=== PATIENT | male | born 1975 | race Caucasian/White ===

== ENCOUNTER 2017-06-06 06:54 | Emergency (ER) | payer OTHER ==
[~2017-06-06 06:54] MED LIST: INDO50CA PO; PERC5TAB12 PO
[2017-06-06 06:55] VITALS: BP 186/95; PULSE 71; RESP 16; TEMP 97.5; O2SAT 97
--- NOTE | 2017-06-06 07:23 | PD ---
HPI Chief Complaint: Musculoskeletal Complaint Time Seen by Provider: 07:14 Travel History International Travel<30 days: No Contact w/Intl Traveler<30days: No Traveled to known affect area: No History of Present Illness HPI 41 year old male who is right hand dominant, presents to ER with c/o of right thumb pain. Patient reports that he went to reach from something a few days ago and since then has had pain with pins and needles to his right thumb. Denies any other c/o. 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 Reports that he does have severe pain by the end of the night. Patient here for evaluation of this pain. PFSH Past Medical History Medical History: Denies Significant Hx Diminished Hearing: No Influenza Vaccination: No Past Surgical History Surgical History: No Previous Surgery Tonsillectomy: Yes Social History Alcohol Use: Yes (socially) Tobacco Use: No Substance Use: No Allergies-Medications (Allergen,Severity, Reaction): Coded Allergies: codeine (Unverified Allergy, Intermediate, HIVES, 06/06/17) Reported Meds & Prescriptions Reported Meds & Active Scripts Active No Active Prescriptions or Reported Medications Review of Systems General / Constitutional: No: Fever Eyes: No: Visual changes HENT: No: Headaches Cardiovascular: No: Chest Pain or Discomfort Respiratory: No: Shortness of Breath Gastrointestinal: No: Abdominal Pain Genitourinary: No: Dysuria Musculoskeletal: Positive: Pain (right thumb pain) Skin: No Rash Neurologic: Positive: Paresthesia (right thumb), No: Weakness Psychiatric: No: Depression Endocrine: No: Polydipsia Hematologic/Lymphatic: No: Easy Bruising Physical Exam Narrative GENERAL: Well-nourished, well-developed patient. SKIN: Focused skin assessment warm/dry. HEAD: Normocephalic. EYES: No scleral icterus. No injection or drainage. NECK: Supple, trachea midline. No JVD or lymphadenopathy. CARDIOVASCULAR: Regular rate and rhythm without murmurs, gallops, or rubs. RESPIRATORY: Breath sounds equal bilaterally. No accessory muscle use. GASTROINTESTINAL: Abdomen soft, non-tender, nondistended. Left hand: normal exam Right hand: pulses normal, neurovascularly with no compromise, no open fracture , patient with appropriate range of motion with all fingers, patient with paresthesias to her right thumb MUSCULOSKELETAL: No cyanosis, or edema. BACK: Nontender without obvious deformity. No CVA tenderness. Data Data Last Documented VS Vital Signs Date Time Temp Pulse Resp B/P (MAP) Pulse Ox O2 Delivery O2 Flow Rate FiO2 06/06/17 06:55 97.5 71 16 186/95 (125) 97 Room Air Orders Orders Wrist, Complete ([id number]) (06/06/17 ) Ibuprofen (Motrin) (06/06/17 07:30) MDM Medical Decision Making Medical Screen Exam Complete: Yes Emergency Medical Condition: Yes Interpretation(s) Vital Signs Date Time Temp Pulse Resp B/P (MAP) Pulse Ox O2 Delivery O2 Flow Rate FiO2 06/06/17 06:55 97.5 71 16 186/95 (125) 97 Room Air Differential Diagnosis Differential includes paresthesias, fx Narrative Course 41-year-old male who presents to emergency room with complaints of right thumb paresthesias for the past few days, that he injured his thumb while reaching for an object a few days ago, he is able to use his thumb without any difficulties, reports increased pain at nighttime while at rest. Patient can have a nerve radiculopathy as paresthesia does extend to the half of his index finger to the right hand, it does not extend to the third or fourth digit. Xray of hand ordered. Last Impressions Wrist X-Ray 06/06/17 0000 Signed Impressions: Service Date/Time: Tuesday, June 06, 2017 07:19 - CONCLUSION: No right wrist abnormality is identified. Edward Angel MD Patient with no wrist abnormality. Will have patient follow up with orthopedic surgery as needed. Diagnosis Primary Impression: Thumb paresthesia, right Patient Instructions: General Instructions Additional Instructions: Return to ER as needed Please follow up with your primary care doctor Follow up with orthopedic surgery as needed Do not drive while taking narcotic pain medications Rest/ice your thumb Med/Other Pt SpecificInfo: Prescription(s) given Scripts Oxycodone-Acetaminophen (Percocet) 5-325 mg Tab 1 TAB PO Q6H Y for PAIN, #10 TAB 0 Refills Prov: Kiley Andre DO 06/06/17 Ibuprofen (Ibuprofen) 600 Mg Tab 600 MG PO Q6H Y for Pain/Inflammation, #40 TAB 0 Refills Prov: Kiley Andre DO 06/06/17 Disposition: 01 DISCHARGE HOME Condition: Stable Kiley Andre DO Jun 06, 2017 07:23
[2017-06-06] MEDS ORDERED: IBUPROFEN 600 MG TAB PO ONE (07:30)
--- NOTE | 2017-06-06 07:37 | RADRPT ---
EXAM DATE/TIME: 06/06/2017 07:19 [facility] COMPARISON: No previous studies available for comparison. INDICATIONS : Sudden onset of right wrist pain when reaching for something, has increasing pain for 4 days MEDICAL HISTORY : None. SURGICAL HISTORY : None. ENCOUNTER: Initial ACUITY: 4 - 6 days PAIN SCORE: 9/10 LOCATION: Right wrist FINDINGS: Three views of the right wrist demonstrate no fracture or dislocation. Mineralization is within [place] l limits. There is no significant arthropathy. No soft tissue abnormality or radiopaque foreign body is identified. CONCLUSION: No right wrist abnormality is identified. Edward Angel MD on June 06, 2017 at 7:34 Board Certified Radiologist. This report was verified electronically.
[2017-06-06] MEDS ORDERED: IBUP-232 PO (07:51)
[2017-06-06] MEDS ORDERED: PERC5TAB12 PO (07:51)
== END 2017-06-06 08:00 | disposition home or self-care (01) ==
LOC: PHED 06:54
DX: R20.2 Paresthesia of skin (principal)
CPT/HCPCS: 73110; 99283

== ENCOUNTER 2017-06-08 13:00 | Emergency (ER) | payer OTHER ==
[~2017-06-08] VITALS: Ht 180.3 cm; Wt 123.5 kg
[~2017-06-08 13:00] MED LIST changes: +IBUP-232 PO; -INDO50CA PO
[2017-06-08 13:05] VITALS: BP 179/86; PULSE 59; RESP 16; TEMP 98.1; O2SAT 97
--- NOTE | 2017-06-08 13:53 | PD ---
HPI Chief Complaint: Injury Time Seen by Provider: 13:47 Travel History International Travel<30 days: No Contact w/Intl Traveler<30days: No Traveled to known affect area: No History of Present Illness HPI This 41-year-old male is complaining of pain in his right thumb. This been having this pain for several days. He was a year and had x-rays which were negative. The pain started about 6 days ago he was reaching for something and he had a sudden sharp pain in the axillary area and then his vomiting has been painful and numb since then. He also has trouble moving the thumb. He is on no medications. He is generally healthy he was given a note to return to work today but there is been no improvement and he is not able to return to work [facility] Past Medical History Diminished Hearing: No Tetanus Vaccination: Unknown Influenza Vaccination: No ?: Not Past Surgical History Tonsillectomy: Yes Social History Alcohol Use: Yes (socially) Tobacco Use: No Substance Use: No Allergies-Medications (Allergen,Severity, Reaction): Coded Allergies: codeine (Unverified Allergy, Intermediate, HIVES, 06/08/17) Reported Meds & Prescriptions Reported Meds & Active Scripts Active Percocet (Oxycodone-Acetaminophen) 5-325 mg Tab 1 Tab PO Q6H PRN Ibuprofen 600 Mg Tab 600 Mg PO Q6H PRN Review of Systems General / Constitutional: No: Fever, Chills Eyes: No: Diploplia, Blurred Vision HENT: No: Headaches, Vertigo Cardiovascular: No: Chest Pain or Discomfort, Palpitations Respiratory: No: Cough, Shortness of Breath Gastrointestinal: No: Nausea, Vomiting Genitourinary: No: Urgency, Frequency Musculoskeletal: No: Myalgias Skin: No Rash Neurologic: Positive: Weakness, Sensory Disturbance Hematologic/Lymphatic: No: Easy Bruising Physical Exam Narrative GENERAL: Well-developed male SKIN: Focused skin assessment warm/dry. HEAD: Atraumatic. Normocephalic. EYES: Pupils equal and round. No scleral icterus. No injection or drainage. ENT: No nasal bleeding or discharge. Mucous membranes pink and moist. NECK: Trachea midline. No JVD. There is no posterior neck tenderness MUSCULOSKELETAL: No obvious deformities. No clubbing. No cyanosis. No edema. NEUROLOGICAL: Awake and alert. No obvious cranial nerve deficits. The right hand there is a decreased sensation in the right thumb in the right index finger. There is weakness of all movements of the thumb. Strength of the elbow is normal PSYCHIATRIC: Appropriate mood and affect; insight and judgment normal. Data Data Last Documented VS Vital Signs Date Time Temp Pulse Resp B/P (MAP) Pulse Ox O2 Delivery O2 Flow Rate FiO2 06/08/17 13:05 98.1 59 16 179/86 (117) 97 MDM Medical Decision Making Medical Screen Exam Complete: Yes Emergency Medical Condition: Yes Medical Record Reviewed: Yes Differential Diagnosis Differential includes carpal tunnel, C6 radiculopathy, neuropathy Narrative Course Patient is quite uncomfortable with this nerve problem. I feel he needs to see a neurologist to further localize this lesion. We referred to Dr. Rodarte. I am been a put him off work for another week. This is not improving at all Diagnosis Primary Impression: Neuropathic pain Referrals: Royer Rodarte MD Departure Forms: Tests/Procedures, Work Release Enter return to work date: Jun 14, 2017 Disposition: 01 DISCHARGE HOME Condition: Stable Fitz Rowell MD Jun 08, 2017 13:53
== END 2017-06-08 14:12 | disposition home or self-care (01) ==
LOC: PHEFT 13:00
DX: M79.2 Neuralgia and neuritis, unspecified (principal); M79.644 Pain in right finger(s); M79.621 Pain in right upper arm
CPT/HCPCS: 99281